=== PATIENT | female | born 1985 | race Caucasian/White ===

== ENCOUNTER 2017-05-29 11:31 | Emergency (ER) | payer OTHER ==
[~2017-05-29] VITALS: Ht 167.6 cm; Wt 64.9 kg
[~2017-05-29 11:31] MED LIST: AUGMENTIN 875-1 EAC1 ORAL; IBUPROFEN600 MG ORAL; NKM; NORCO 5-325 TA1 EACH ORAL; ZOFRAN ODT4 MG ORAL; ZOFRAN4 MG ORAL
[2017-05-29 12:07] VITALS: BP 138/78
[2017-05-29 12:09] LABS: APPEARANCE,URINE CLEAR; BILIRUBIN, URINE NEGATIVE (NEGATIVE); COLOR,URINE PALE YELLOW; GLUCOSE, URINE (UA) NEGATIVE (NEGATIVE); KETONES,URINE 1+ (NEGATIVE); LEUKOCYTE ESTERASE ,URINE NEGATIVE (NEGATIVE); NITRITE,URINE NEGATIVE (NEGATIVE); PH,URINE 6.5 (4.5-8.0); PROTEIN,URINE NEGATIVE (NEGATIVE); UROBILINOGEN,URINE NORMAL MG/DL (0.0-1.0)
[2017-05-29 12:37] LABS: BASOPHILS % (AUTO) 1.5 % (0.0-2.0); EOSINOPHILS % (AUTO) 1.2 % (0.0-3.0); HEMATOCRIT 40.8 % (37.0-47.0); HEMOGLOBIN 13.5 G/DL (12.0-16.0); LYMPHOCYTES % (AUTO) 44.3 % (20.0-45.0); MEAN CORPUSCULAR VOLUME 97 FL (80-99); MONOCYTES % (AUTO) 5.9 % (1.0-10.0); NEUTROPHILS % (AUTO) 47.1 % (45.0-75.0); PLATELET COUNT 112 K/UL (150-450); RED BLOOD COUNT 4.22 M/UL (4.20-5.40); RED CELL DISTRIBUTION WIDTH 11.5 % (11.6-14.8); WHITE BLOOD COUNT 7.4 K/UL (4.8-10.8)
[2017-05-29 12:48] LABS: ANION GAP 13 mmol/L (5-15); BLOOD UREA NITROGEN 7 mg/dL (7-18); CALCIUM 9.5 MG/DL (8.5-10.1); CARBON DIOXIDE 21 MMOL/L (21-32); CHLORIDE 104 MMOL/L (98-107); CREATININE 0.7 MG/DL (0.55-1.30); POTASSIUM 3.6 MMOL/L (3.5-5.1); SODIUM 138 MMOL/L (136-145)
[2017-05-29 12:52] LABS: ALANINE AMINOTRANSFERASE 24 U/L (12-78); ALBUMIN 4.3 G/DL (3.4-5.0); ALBUMIN/GLOBULIN RATIO 1.2 (1.0-2.7); ALKALINE PHOSPHATASE 51 U/L (46-116); ASPARTATE AMINO TRANSFERASE 21 U/L (15-37); BILIRUBIN,TOTAL 0.6 MG/DL (0.2-1.0)
--- NOTE | 2017-05-29 14:30 | Emergency Room Report ---
History of Present Illness General Chief Complaint: Gastrointestinal Bleed Source: Patient Present Illness HPI She was evaluated at urgent care on and given rx of omeprazole and zofran. She has continued with abdominal discomfort - bloating and passed some loose stool with some blood in earlier yesterday (she worked last night). She was told to be evaluated at ED of blood in stool and continued discomfort. She has persistent nausea but took zofran with effectiveness with vomiting. No coffee grounds or melena. She has epigastric pain which is better now - more complaints of bloating. She has felt for hemorrhoids and does not feel external source and has no rectal pain. She states she does not strain on toilet. She takes advil and NSAIDs frequently for cramps and other MS discomfort. She drinks alcohol on friends' birthdays but not daily. She used to smoke. She has lost 25 lbs in the past year unintentionally - she feels related to stress. Family history of ulcerative colitis in Father. No prior colonoscopy or endoscopy. She has been treated for H pylori based on breath and stool twice. Her MD is trying to arrange for endoscopy and colonoscopy in the near future. No chest pain, palpitations, dyspnea. No rashes. No dysuria. Normal and regular menses. She was admitted 06/2014 for hemorraghic ovarian cyst. D/C dx: 1. Abdominal pain, resolved. 2. Ruptured ovarian cyst. 3. Mild anemia. 4. Painful periods, possible endometriosis. Seen in July [address] of abdomen due to pain (see below). Allergies: Coded Allergies: No Known Allergies (Unverified , 11/21/13) Patient History Past Medical History: see triage record, old chart reviewed Social History: Reports: smoking, alcohol use, Denies: drug use Social History Narrative Works at [employer] Last Menstrual Period: 05/09/2017 Reviewed Nursing Documentation: PMH: Agreed, PSxH: Agreed Nursing Documentation-PMH Past Medical History: No Stated History Hx Cardiac Problems: No Hx Gastrointestinal Problems: Yes - OVARIAN CYST Hx Neurological Problems: No Review of Systems All Other Systems: negative except mentioned in HPI Physical Exam Vital Signs Date Time Temp Pulse Resp B/P (MAP) Pulse Ox O2 Delivery O2 Flow Rate FiO2 05/29/17 11:32 97.5 62 16 138/78 97 Room Air Sp02 EP Interpretation: reviewed, normal General Appearance: well appearing, no apparent distress, GCS 15 Head: normocephalic Eyes: bilateral eye normal inspection, bilateral eye PERRL ENT: moist mucus membranes Neck: supple Respiratory: lungs clear, normal breath sounds Cardiovascular #1: regular rate, rhythm Cardiovascular #2: 2+ radial (R) Gastrointestinal: normal inspection, normal bowel sounds, no mass, non- distended, no guarding, no rebound, tenderness - diffuse Rectal: deferred - patient certain of ID of blood in am Musculoskeletal: back normal, gait/station normal, normal range of motion Neurologic: alert, oriented x3, grossly normal Psychiatric: anxious Skin: normal inspection, warm/dry Medical Decision Making Diagnostic Impression: Primary Impression: Vomiting Qualified Codes: R11.2 - Nausea with vomiting, unspecified Additional Impressions: Lower GI bleed Bloating ER Course Patient presents with vomiting and blood in stool. DDx: GI bleed, gastritis, GERD, PUD, internal hemorrhoid, inflammatory bowel disease, polyps amongst others. Emergent evaluation with labs. Treatment with pepcid and zofran with IV hydration. Not tachycardic. She recognizes blood and it is accepted that she has passed some blood in stool. If elevated WBC, consider further evaluation with CT. Concern over family history. Labs with normal WBC and H/H. Electrolytes normal. Review of CT 07/2014: Findings: The appendix is normal. No evidence of diverticulosis or diverticulitis. A few mildly dilated proximal jejunal loops are seen in the upper abdomen. There is a gradual transition to normal caliber small bowel. This appearance is similar to the prior study. Previously demonstrated hemoperitoneum is no longer evident. There may be trace normal attenuation pelvic fluid currently. No free intraperitoneal air. No pelvic mass or adenopathy demonstrated. No retroperitoneal or mesenteric mass or adenopathy. Kidneys, collecting systems, adrenals, pancreas, spleen, liver, gallbladder are all unremarkable. The included lung bases are clear. Impression: Mildly dilated proximal small bowel loops, may represent focal ileus , no definite evidence of obstruction Trace free pelvic fluid, likely physiologic Previously demonstrated hemoperitoneum has resolved. At this point, no imaging studies indicated. Patient needs endoscopy and colonoscopy. Patient improved and tolerating PO. Discussed how NSAIDs and alcohol inflame stomach and need to stop these. Also discussed contribution of stress. Patient stable for outpatient observation and treatment. Laboratory Tests Test 05/29/17 10:34 05/29/17 11:50 White Blood Count 7.4 K/UL (4.8-10.8) Red Blood Count 4.22 M/UL (4.20-5.40) Hemoglobin 13.5 G/DL (12.0-16.0) Hematocrit 40.8 % (37.0-47.0) Mean Corpuscular Volume 97 FL (80-99) Mean Corpuscular Hemoglobin 32.0 PG (27.0-31.0) H Mean Corpuscular Hemoglobin Concent 33.1 G/DL (32.0-36.0) Red Cell Distribution Width 11.5 % (11.6-14.8) L Platelet Count 112 K/UL (150-450) L Mean Platelet Volume 7.1 FL (6.5-10.1) Neutrophils (%) (Auto) 47.1 % (45.0-75.0) Lymphocytes (%) (Auto) 44.3 % (20.0-45.0) Monocytes (%) (Auto) 5.9 % (1.0-10.0) Eosinophils (%) (Auto) 1.2 % (0.0-3.0) Basophils (%) (Auto) 1.5 % (0.0-2.0) Sodium Level 138 MMOL/L (136-145) Potassium Level 3.6 MMOL/L (3.5-5.1) Chloride Level 104 MMOL/L (98-107) Carbon Dioxide Level 21 MMOL/L (21-32) Anion Gap 13 mmol/L (5-15) Blood Urea Nitrogen 7 mg/dL (7-18) Creatinine 0.7 MG/DL (0.55-1.30) Estimate Glomerular Filtration Rate > 60 mL/min (>60) Glucose Level 94 MG/DL (74-106) Calcium Level 9.5 MG/DL (8.5-10.1) Total Bilirubin 0.6 MG/DL (0.2-1.0) Aspartate Amino Transferase (AST) 21 U/L (15-37) Alanine Aminotransferase (ALT) 24 U/L (12-78) Alkaline Phosphatase 51 U/L (46-116) Total Protein 7.9 G/DL (6.4-8.2) Albumin 4.3 G/DL (3.4-5.0) Globulin 3.6 g/dL Albumin/Globulin Ratio 1.2 (1.0-2.7) Lipase 190 U/L (73-393) Urine Color Pale yellow Urine Appearance Clear Urine pH 6.5 (4.5-8.0) Urine Specific [place] 1.005 (1.005-1.035) Urine Protein Negative (NEGATIVE) Urine Glucose (UA) Negative (NEGATIVE) Urine Ketones 1+ (NEGATIVE) H Urine Occult Blood 1+ (NEGATIVE) H Urine Nitrite Negative (NEGATIVE) Urine Bilirubin Negative (NEGATIVE) Urine Urobilinogen Normal MG/DL (0.0-1.0) Urine Leukocyte Esterase Negative (NEGATIVE) Urine RBC 2-4 /HPF (0 - 2) H Urine WBC 0-2 /HPF (0 - 2) Urine Squamous Epithelial Cells Occasional /LPF Urine Bacteria Occasional /HPF (NONE) Urine HCG, Qualitative Negative Last Vital Signs Date Time Temp Pulse Resp B/P (MAP) Pulse Ox O2 Delivery O2 Flow Rate FiO2 05/29/17 15:06 97.5 76 16 138/78 97 Room Air Status: improved Disposition: HOME, SELF-CARE Condition: Improved Scripts Acetaminophen (Tylenol) 325 Mg Tablet 650 MG ORAL Q6H Y for Prn Pain/Headache/Temp > 101, #30 TAB 0 Refills Prov: Wojciech Newton M.D. 05/29/17 Mag Hydrox/Al Hydrox/Simeth (MAALOX MAXIMUM STRENGTH SUSP) 355 Ml Oral.susp 30 ML PO Q6HR, #240 ML Prov: Wojciech Newton M.D. 05/29/17 Tramadol Hcl* (ULTRAM*) 50 Mg Tablet 50 MG ORAL Q6H Y for For Pain, #10 TAB 0 Refills Prov: Wojciech Newton M.D. 05/29/17 Referrals: NOT CHOSEN JEREMY/,REFERRING (PCP) Wojciech Newton M.D. May 29, 2017 14:30
[2017-05-29] MEDS ORDERED: TRAMADOL HCL50 MG ORAL (14:48)
[2017-05-29] MEDS ORDERED: MAALOX MAXIMUM355 M1 PO (14:48)
[2017-05-29] MEDS ORDERED: TYLENOL325 MG ORAL (14:48)
[2017-05-29 15:05] VITALS: BP 124/69
[2017-05-29 15:06] VITALS: BP 138/78
== END 2017-05-29 15:08 | disposition home or self-care (01) ==
LOC: EMR 12:02
DX: R11.2 Nausea with vomiting, unspecified (principal); R10.9 Unspecified abdominal pain; K92.2 Gastrointestinal hemorrhage, unspecified; R14.0 Abdominal distension (gaseous)
CPT/HCPCS: 36415; 80053; 81003; 81025; 83690; 85025; 86850; 86900; 86901; 96374; 96375; 99284; J2405; S0028